=== PATIENT | male | born 1990 | race Caucasian/White ===

== ENCOUNTER 2017-09-26 13:38 | Emergency (ER) | payer BC ==
[~2017-09-26] VITALS: Ht 182.9 cm; Wt 111.4 kg
[~2017-09-26 13:38] MED LIST: BACTRIM DS1 TAB OR; BACTRIM DS1 TAB PO; CIPRO500 MG OR; CLINDAMYCIN150 MG PO; DOXYCYC MONO100 MG OR; FLAGYL500 MG PO; NAPROSYN500 MG PO; NO HOME MEDS; PENICILLN VK500 MG OR; ULTRAM50 MG PO; ZOFRAN ODT4 MG PO; ZOFRAN4 M1 PO
[2017-09-26] MEDS ORDERED: GNP IBUPROFEN (13:55)
[2017-09-26 14:32] LABS: HEMATOCRIT 46.2 % (39.0-50.0); HEMOGLOBIN 15.4 g/dl (14.0-18.0); IMMATURE GRANULOCYTES 0.3 % (0.0-1.0); MEAN CELL VOLUME 91.1 fL CALC (80.0-100.0); MEAN CORPUSCULAR HGB 30.4 pG CALC (26.0-32.0); MEAN CORPUSCULAR HGB CONC 33.3 g/L CALC (32.0-36.0); NEUT# 6.25 thou/uL (1.82-7.42); RED BLOOD COUNT 5.07 mill/uL (4.70-6.10); RED CELL DISTRI WIDTH 11.9 % (11.5-15.5)
[2017-09-26 15:01] LABS: ANION GAP 16 (6-22 (CALC)); BUN 13 mg/dL (9-20); BUN/CREATININE RATIO 13 (12-20 (CALC)); CALCIUM 9.7 mg/dL (8.4-10.2); CARBON DIOXIDE 26 mmol/l (22-30); CHLORIDE 104 mmol/l (95-108); GFR > 60 ML/MIN (>=60 (CALC)); GFR FOR AFR.AMER. > 60 ML/MIN (>=60 (CALC)); GLUCOSE 109 mg/dL (75-110); POTASSIUM 3.9 mmol/l (3.5-5.1); SODIUM 141 mmol/l (137-146)
[2017-09-26] MEDS ORDERED: MOTRIN400 MG PO (16:57)
[2017-09-26] MEDS ORDERED: CYCLOBENZAPR5 MG PO (16:57)
[2017-09-26 17:05] VITALS: BP 118/93
== END 2017-09-26 17:05 | disposition home or self-care (01) | DRG 552 ==
LOC: ED 13:38
PROVIDERS: Family Medicine
DX: S16.1XXA Strain of muscle, fascia and tendon at neck level, initial encounter (principal); F17.210 Nicotine dependence, cigarettes, uncomplicated; X58.XXXA Exposure to other specified factors, initial encounter
CPT/HCPCS: Q9967

== ENCOUNTER 2018-12-05 09:32 | Emergency (ER) | payer BC ==
[~2018-12-05] VITALS: Ht 182.9 cm; Wt 109.0 kg
[~2018-12-05 09:32] MED LIST changes: +CYCLOBENZAPR5 MG PO; +GNP IBUPROFEN; +MOTRIN400 MG PO
[2018-12-05 10:22] LABS: HEMATOCRIT 44.2 % (39.0-50.0); HEMOGLOBIN 15.1 g/dl (14.0-18.0); IMMATURE GRANULOCYTES 0.4 % (0.0-5.0); MEAN CELL VOLUME 88.6 fL CALC (80.0-100.0); MEAN CORPUSCULAR HGB 30.3 pG CALC (26.0-32.0); MEAN CORPUSCULAR HGB CONC 34.2 g/L CALC (32.0-36.0); NEUT# 4.52 thou/uL (1.82-7.42); RED BLOOD COUNT 4.99 mill/uL (4.70-6.10)
[2018-12-05 10:31] LABS: ALBUMIN 4.5 g/dL (3.2-5.0); ALKALINE PHOSPHATASE 73 u/l (38-126); ANION GAP 17 (6-22 (CALC)); BILIRUBIN, TOTAL 0.8 mg/dL (0.0-1.4); BUN 13 mg/dL (9-20); BUN/CREATININE RATIO 14 (12-20 (CALC)); CARBON DIOXIDE 27 mmol/l (22-30); CHLORIDE 96 mmol/l (95-108); CREATININE 0.9 mg/dL (0.7-1.3); GFR > 60 ML/MIN (>=60 (CALC)); GFR FOR AFR.AMER. > 60 ML/MIN (>=60 (CALC)); POTASSIUM 3.7 mmol/l (3.5-5.1); SGOT/AST 36 u/l (17-59); SODIUM 136 mmol/l (137-146); TOTAL PROTEIN 7.6 g/dL (6.3-8.2)
[2018-12-05 12:47] VITALS: BP 149/99
== END 2018-12-05 12:47 | disposition home or self-care (01) | DRG 153 ==
LOC: ED 09:32
PROVIDERS: Emergency Medicine
DX: J02.9 Acute pharyngitis, unspecified (principal); J32.0 Chronic maxillary sinusitis; R59.0 Localized enlarged lymph nodes; R53.81 Other malaise
CPT/HCPCS: Q9967

== ENCOUNTER 2021-04-22 19:09 | Emergency (ER) | payer BC ==
[~2021-04-22] VITALS: Ht 182.9 cm; Wt 100.0 kg
[2021-04-22 20:26] VITALS: BP 118/81
== END 2021-04-22 20:26 | disposition home or self-care (01) | DRG 605 ==
LOC: ED 19:09
DX: S90.31XA Contusion of right foot, initial encounter (principal); S90.811A Abrasion, right foot, initial encounter; F17.200 Nicotine dependence, unspecified, uncomplicated; Y93.89 Activity, other specified; Y92.009 Unspecified place in unspecified non-institutional (private) residence as the place of occurrence of the external cause; W54.8XXA Other contact with dog, initial encounter